=== PATIENT | female | born 1935 | race Caucasian/White ===

== ENCOUNTER 2017-04-12 12:25 | Inpatient (IN) | payer MEDICARE ==
[2017-04-12] VITALS (7 sets, daily range): BP systolic 155–183; BP diastolic 72–104; PULSE 83–100; RESP 16–18; TEMP 98–98.4; O2SAT 95–98
[~2017-04-12] VITALS: Ht 152.4 cm; Wt 52.0 kg
[~2017-04-12 12:25] MED LIST: ASPI325T24 PO; PROT40TA PO
[2017-04-12] MEDS ORDERED: ASPI81TA11 PO (12:54)
--- NOTE | 2017-04-12 13:09 | PD ---
HPI Chief Complaint: Pain: Acute or Chronic Time Seen by Provider: 12:53 Travel History International Travel<30 days: No Contact w/Intl Traveler<30days: No Traveled to known affect area: No History of Present Illness HPI This is an 81 year-old woman presents to the emergency department complaining of feeling weak and dizzy. She states that she had the flu about a month ago and has been weak ever since. She had cough cold symptoms associated with some nausea. She had some diarrhea. Since then the symptoms are resolved but she continues to feel weak, lightheaded at times, this is not really getting any better. Review of systems is positive for some occasional swelling to her fully that of resolved. She also states that she is not sleeping well. No chest pain. No shortness of breath. She urinates a little bit more frequently than normal, but no other obvious UTI symptoms. No other complaints. History Past Medical History Narrative Medical Hypertension Mitral valve prolapse Tetanus Vaccination: < 5 Years Influenza Vaccination: Yes Menopausal: Yes Social History Alcohol Use: No Tobacco Use: No Allergies-Medications (Allergen,Severity, Reaction): Coded Allergies: Sulfa (Verified Allergy, Intermediate, hives, 04/12/17) Reported Meds & Prescriptions Reported Meds & Active Scripts Active Reported Aspirin EC (Aspirin) 81 Mg Tabdr 81 Mg PO DAILY Review of Systems Except as stated in HPI: all other systems reviewed are Neg Physical Exam Narrative GENERAL: [-Elderly 81 year-old woman, no acute distress. SKIN: Focused skin assessment warm/dry. HEAD: Atraumatic. Normocephalic. EYES: Pupils equal and round. No scleral icterus. No injection or drainage. ENT: No nasal bleeding or discharge. Mucous membranes pink and moist. NECK: Trachea midline. No JVD. CARDIOVASCULAR: Regular rate and rhythm. No murmur appreciated. RESPIRATORY: No accessory muscle use. Clear to auscultation. Breath sounds equal bilaterally. GASTROINTESTINAL: Abdomen soft, non-tender, nondistended. Hepatic and splenic margins not palpable. MUSCULOSKELETAL: Kyphotic back, no other deformities. No clubbing. No cyanosis. No edema. NEUROLOGICAL: Awake and alert. No obvious cranial nerve deficits. Motor grossly within normal limits. Normal speech. Data Data Last Documented VS Vital Signs Date Time Temp Pulse Resp B/P Pulse Ox O2 Delivery O2 Flow Rate FiO2 04/12/17 13:39 87 16 174/90 97 Room Air 04/12/17 12:35 98.0 Orders Complete Blood Count With Diff (04/12/17 13:01) Comprehensive Metabolic Panel (04/12/17 13:01) Urinalysis - C+S If Indicated (04/12/17 13:01) Thyroid Stimulating Hormone (04/12/17 13:01) Troponin I (04/12/17 13:01) Iv Access Insert/Monitor (04/12/17 13:01) B-Type Natriuretic Peptide (04/12/17 14:09) Chest, Pa & Lat (04/12/17 ) Electrocardiogram (04/12/17 ) Diet Heart Healthy (04/12/17 Dinner) Admit Order (Ed Use Only) (04/12/17 ) Consult Cardiology (04/12/17 ) Labs Laboratory Tests Test 04/12/17 13:15 White Blood Count 7.6 TH/MM3 Red Blood Count 4.47 MIL/MM3 Hemoglobin 13.8 GM/DL Hematocrit 39.6 % Mean Corpuscular Volume 88.5 FL Mean Corpuscular Hemoglobin 30.8 PG Mean Corpuscular Hemoglobin 34.8 % Concent Red Cell Distribution Width 12.8 % Platelet Count 175 TH/MM3 Mean Platelet Volume 7.8 FL Neutrophils (%) (Auto) 73.4 % Lymphocytes (%) (Auto) 17.4 % Monocytes (%) (Auto) 8.2 % Eosinophils (%) (Auto) 0.4 % Basophils (%) (Auto) 0.6 % Neutrophils # (Auto) 5.7 TH/MM3 Lymphocytes # (Auto) 1.3 TH/MM3 Monocytes # (Auto) 0.6 TH/MM3 Eosinophils # (Auto) 0.0 TH/MM3 Basophils # (Auto) 0.0 TH/MM3 CBC Comment DIFF FINAL Differential Comment Urine Collection Type CLEAN CATCH Urine Color STRAW Urine Turbidity CLEAR Urine pH 6.5 Urine Specific [place] 1.009 Urine Protein NEG mg/dL Urine Glucose (UA) NEG mg/dL Urine Ketones NEG mg/dL Urine Occult Blood NEG Urine Nitrite NEG Urine Bilirubin NEG Urine Leukocyte Esterase NEG Urine Squamous Epithelial 0-2 /hpf Cells Microscopic Urinalysis Comment CULT NOT INDICATED Sodium Level 136 MEQ/L Potassium Level 3.6 MEQ/L Chloride Level 97 MEQ/L Carbon Dioxide Level 30.8 MEQ/L Anion Gap 8 MEQ/L Blood Urea Nitrogen 12 MG/DL Creatinine 0.60 MG/DL Estimat Glomerular Filtration 96 ML/MIN Rate Random Glucose 99 MG/DL Calcium Level 9.3 MG/DL Total Bilirubin 0.4 MG/DL Aspartate Amino Transf 31 U/L (AST/SGOT) Alanine Aminotransferase 38 U/L (ALT/SGPT) Alkaline Phosphatase 91 U/L Troponin I 0.35 NG/ML B-Type Natriuretic Peptide 145 PG/ML Total Protein 7.4 GM/DL Albumin 3.9 GM/DL Thyroid Stimulating Hormone 2.110 uIU/ML 3rd Gen [facility] Medical Decision Making Medical Screen Exam Complete: Yes Emergency Medical Condition: Yes Interpretation(s) My review of EKG: Normal sinus rhythm at a rate of 88, slightly rightward axis, inferior lateral T wave inversions that could suggest ischemia. Compared to previous EKG from February 14, 2015, inferior T-wave inversions are old, lateral T wave changes are new. My review of chest x-ray: Marked kyphosis, no acute cardio pulmonary disease. LABS: CBC is unremarkable. CMP is unremarkable. Troponin 0.35 BNP, not elevated TSH normal Differential Diagnosis Weakness, infection, electrolyte abnormality, kidney failure, anemia, other Narrative Course Medical decision making INITIAL: Is an 81 year-old woman presents to the emergency department complaining of generalized weakness and occasional dizziness after having URI symptoms about a month ago. She looks overall well. She made to still be recovering. We'll check for anemia renal failure lecture light abnormality or other systemic illness. Recommend outpatient follow-up with her primary doctor. FINAL: 81 year-old woman with weakness dizziness, elevated troponin, suspect CHF or ACS. Spoke with Dr. Reynolds. Would like stat consult with cardiology. Spoke with cardiology, would like patient admitted to the [facility]. Limited patient to the [facility] hospital for weakness and dizziness, possible CHF, rule out [place]. Diagnosis Primary Impression: Weakness Additional Impression: NSTEMI (non-ST elevated myocardial infarction) Danny Gallo MD Apr 12, 2017 13:09
[2017-04-12 13:31] LABS: AUTOMATED NEUTROPHIL # 5.7 TH/MM3 (1.8-7.7); BASOPHIL % 0.6 % (0.0-2.0); EOSINOPHIL % 0.4 % (0.0-4.0); HEMATOCRIT 39.6 % (35.0-46.0); HEMO FLAGS DIFF FINAL; LYMPH % 17.4 % (9.0-44.0); LYMPHOCYTE # 1.3 TH/MM3 (1.0-4.8); MEAN CELL VOLUME 88.5 FL (80.0-100.0); MEAN CORPUSCULAR HEMOGLOBIN 30.8 PG (27.0-34.0); MEAN CORPUSCULAR HGB CONC 34.8 % (32.0-36.0); MONO % 8.2 % (0.0-8.0); NEUT % 73.4 % (16.0-70.0); PLATELET COUNT 175 TH/MM3 (150-450); RED BLOOD COUNT 4.47 MIL/MM3 (4.00-5.30); RED CELL DISTRIBUTION WIDTH 12.8 % (11.6-17.2); WHITE BLOOD COUNT 7.6 TH/MM3 (4.0-11.0)
[2017-04-12 13:37] LABS: BLOOD, URINE NEG (NEG); GLUCOSE,URINE NEG (NEG); KETONE, URINE NEG (NEG); NITRITE,URINE NEG (NEG); PH, URINE 6.5 (5.0-8.5)
[2017-04-12 13:40] LABS: CHLORIDE 97 MEQ/L (98-107); POTASSIUM 3.6 MEQ/L (3.5-5.1); SODIUM (NA) 136 MEQ/L (136-145)
[2017-04-12 13:44] LABS: ANION GAP 8 MEQ/L (5-15); BICARBONATE 30.8 MEQ/L (21.0-32.0); BLOOD UREA NITROGEN 12 MG/DL (7-18)
[2017-04-12 13:47] LABS: ALT (GPT) 38 U/L (10-53); AST (GOT) 31 U/L (15-37); GLOMERULAR FILTRATION RATE 96 ML/MIN (>89)
[2017-04-12 13:49] LABS: TOTAL BILIRUBIN ADULT 0.4 MG/DL (0.2-1.0)
[2017-04-12 13:50] LABS: ALKALINE PHOSPHATASE 91 U/L (45-117)
[2017-04-12 13:53] LABS: METHOD OF COLLECTION CLEAN CATCH; URINE COLOR STRAW (YELLW/STRAW)
[2017-04-12 13:54] LABS: COMMENT (UR) CULT NOT INDICATED; CULTURE IF INDICATED CULT NOT INDICATED; SQUAMOUS EPITHELIAL CELL URINE 0-2 /hpf (0-5)
--- NOTE | 2017-04-12 14:58 | RADHPO ---
EXAM DATE/TIME: 04/12/2017 14:36 [facility] COMPARISON: CHEST PA & LAT, February 14, 2015, 18:19. INDICATIONS : Short of breath, weakness. MEDICAL HISTORY : Hypertension. SURGICAL HISTORY : Tonsillectomy. Hysterectomy. Mitral valve replacement. Cardiac cath. Varicose vein sx. Bladder lift. ENCOUNTER: Initial ACUITY: 1 month PAIN SCORE: 0/10 LOCATION: Chest FINDINGS: Sternal wires from previous bypass are noted. Mild interstitial changes are noted. These may well b e chronic. Calcified mitral valve annulus is noted. Bones are osteoporotic. CONCLUSION: Background of interstitial changes in the lung with normal size heart and no pleural effusion. This may be chronic fibrosis. Calcified mitral valve annulus. Washington Fry MD FACR on April 12, 2017 at 14:49 Board Certified Radiologist. This report was verified electronically.
[2017-04-12] MEDS: SODIUM CHLOR 0.45% 1000 ML INJ 1,000 ML IV SCH (16:35)
--- NOTE | 2017-04-12 16:45 | HHI.HP ---
[facility] Non-Staff Admission Diagnosis weakness, rule out [place] Diagnoses: Chief Complaint: Weakness and dyspepsia Travel History International Travel<30 Days: No Contact w/Intl Traveler <30 Da: No Traveled to Known Affected Are: No History of Present Illness Patient's 81-year-old female with a history of mitral valve replacement about 5 years ago in [place]. She came to the emergency room complaining about a week of progressive weakness and associated right leg swelling with numbness in both of her legs. She had some nausea. For the last 2 weeks she's had increasing dyspnea on exertion and nausea. She notes some palpitations. She reports a vague chest pressure and had recently increased her aspirin from 81 mg at 325 mg due to the discomfort. She is the weakness is in her legs and her arms and worse with exertion. Patient also reports increased insomnia. She has also tried taking magnesium occasionally and noted that it improved her energy level somewhat but not completely. For these reasons the patient came to the emergency room. She was seen by the ER physician and noted to have elevated cardiac enzymes. On my review her x-ray there is some basilar congestion pattern. Patient also appears to have dyspnea on exertion when seen and bleeding around the emergency room to the bathroom. He has been no fever or chills. No cough. Patient has elevated blood pressures in the 170s and 90s. For these reasons the patient is admitted to the hospital Review of Systems Constitutional: DENIES: Diaphoretic episodes, Fatigue, Fever, Weight gain, Weight loss, Chills, Dizziness, Change in appetite, Night Sweats Endocrine: DENIES: Abnorml menstrual pattern, Heat/cold intolerance, Polydipsia , Polyuria, Polyphagia Eyes: DENIES: Blurred vision, Diplopia, Eye inflammation, Eye pain, Vision loss , Photosensitivity, Double Vision Ears, nose, mouth, throat: DENIES: Tinnitus, Hearing loss, Vertigo, Nasal discharge, Oral lesions, Throat pain, Hoarseness, Ear Pain, Running Nose, Epistaxis, Sinus Pain, Toothache, Odynophagia Respiratory: DENIES: Apneas, Cough, Snoring, Wheezing, Hemoptysis, Sputum production, Shortness of breath Cardiovascular: COMPLAINS OF: Dyspnea on Exertion, Lower Extremity Edema, DENIES: Chest pain, Palpitations, Syncope, PND, Orthopnea, Claudication Gastrointestinal: COMPLAINS OF: Abdominal pain, Nausea, DENIES: Black stools, Bloody stools, Constipation, Diarrhea, Vomiting, Difficulty Swallowing, Anorexia Genitourinary: DENIES: Abnormal vaginal bleeding, Dysmenorrhea, Dyspareunia, Sexual dysfunction, Urinary frequency, Urinary incontinence, Urgency, Hematuria , Dysuria, Nocturia, Vaginal discharge Musculoskeletal: DENIES: Joint pain, Muscle aches, Stiffness, Joint Swelling, Back pain, Neck pain Integumentary: DENIES: Abnormal pigmentation, Pruritus, Rash, Nail changes, Breast masses, Breast skin changes, Nipple discharge Hematologic/lymphatic: DENIES: Bruising, Lymphadenopathy Immunologic/allergic: DENIES: Eczema, Urticaria Neurologic: DENIES: Abnormal gait, Headache, Localized weakness, Paresthesias, Seizures, Speech Problems, Tremor, Poor Balance Psychiatric: DENIES: Anxiety, Confusion, Mood changes, Depression, Hallucinations, Agitation, Suicidal Ideation, Homicidal Ideation, Delusions Past Family Social History Past Medical History Mitral valve, mechanical Past Surgical History Mechanical mitral valve Partial hysterectomy Vein stripping Reported Medications Reviewed and the medical record, recently increased her aspirin to 325 a day Allergies: Coded Allergies: Sulfa (Verified Allergy, Intermediate, hives, 04/12/17) Active Ordered Medications Reviewed in the medical record Family History Father and mother both of old age in their 80s Social History No tobacco or alcohol, , lives in [facility] Physical Exam Vital Signs Vital Signs Date Time Temp Pulse Resp B/P Pulse Ox O2 Delivery O2 Flow Rate FiO2 04/12/17 15:27 97 18 158/74 98 Room Air 04/12/17 13:39 87 16 174/90 97 Room Air 04/12/17 12:51 94 04/12/17 12:35 98.0 96 18 172/104 98 Physical Exam GENERAL: This is a well-nourished, well-developed patient, in no apparent distress. SKIN: No rashes, ecchymoses or lesions. Cool and dry. HEAD: Atraumatic. Normocephalic. No temporal or scalp tenderness. EYES: Pupils equal round and reactive. Extraocular motions intact. No scleral icterus. No injection or drainage. ENT: Nose without bleeding, purulent drainage or septal hematoma. Throat without erythema, tonsillar hypertrophy or exudate. Uvula midline. Airway patent. NECK: Trachea midline. No JVD or lymphadenopathy. Supple, nontender, no meningeal signs. CARDIOVASCULAR: Regular rate and rhythm without mechanical murmurs, gallops, or rubs. RESPIRATORY: Clear to auscultation. Breath sounds equal bilaterally. No wheezes , rales, or rhonchi. GASTROINTESTINAL: Abdomen soft, non-tender, nondistended. No hepato-splenomegaly , or palpable masses. No guarding. MUSCULOSKELETAL: Extremities without clubbing, cyanosis, or edema. No joint tenderness, effusion, or edema noted. No calf tenderness. Negative Homans sign bilaterally. NEUROLOGICAL: Awake and alert. Cranial nerves II through XII intact. Motor and sensory grossly within normal limits. Five out of 5 muscle strength in all muscle groups. Normal speech. Laboratory Laboratory Tests Test 04/12/17 13:15 White Blood Count 7.6 Red Blood Count 4.47 Hemoglobin 13.8 Hematocrit 39.6 Mean Corpuscular Volume 88.5 Mean Corpuscular Hemoglobin 30.8 Mean Corpuscular Hemoglobin 34.8 Concent Red Cell Distribution Width 12.8 Platelet Count 175 Mean Platelet Volume 7.8 Neutrophils (%) (Auto) 73.4 Lymphocytes (%) (Auto) 17.4 Monocytes (%) (Auto) 8.2 Eosinophils (%) (Auto) 0.4 Basophils (%) (Auto) 0.6 Neutrophils # (Auto) 5.7 Lymphocytes # (Auto) 1.3 Monocytes # (Auto) 0.6 Eosinophils # (Auto) 0.0 Basophils # (Auto) 0.0 CBC Comment DIFF FINAL Differential Comment Urine Collection Type CLEAN CATCH Urine Color STRAW Urine Turbidity CLEAR Urine pH 6.5 Urine Specific [place] 1.009 Urine Protein NEG Urine Glucose (UA) NEG Urine Ketones NEG Urine Occult Blood NEG Urine Nitrite NEG Urine Bilirubin NEG Urine Leukocyte Esterase NEG Urine Squamous Epithelial 0-2 Cells Microscopic Urinalysis Comment CULT NOT INDICATED Sodium Level 136 Potassium Level 3.6 Chloride Level 97 Carbon Dioxide Level 30.8 Anion Gap 8 Blood Urea Nitrogen 12 Creatinine 0.60 Estimat Glomerular Filtration 96 Rate Random Glucose 99 Calcium Level 9.3 Total Bilirubin 0.4 Aspartate Amino Transf 31 (AST/SGOT) Alanine Aminotransferase 38 (ALT/SGPT) Alkaline Phosphatase 91 Troponin I 0.35 B-Type Natriuretic Peptide 145 Total Protein 7.4 Albumin 3.9 Thyroid Stimulating Hormone 2.110 3rd Gen Result Diagram: 04/12/17 1315 04/12/17 1315 Imaging Last Impressions Chest X-Ray 04/12/17 0000 Signed Impressions: Service Date/Time: Wednesday, April 12, 2017 14:36 - CONCLUSION: Background of interstitial changes in the lung with normal size heart and no pleural effusion. This may be chronic fibrosis. Calcified mitral valve annulus. Washington Fry MD FACR Assessment and Plan Problem List: (1) Chest pain, atypical ICD Code: R07.89 Status: Acute Plan: Patient with increased work of breathing and shortness of breath with associated right leg discomfort and dyspepsia. Etiology unclear however may be anginal equivalent versus embolic phenomena versus acute coronary syndrome/non- STEMI. Continue with cardiac enzymes, follow d-dimer, right leg ultrasound Add proton pump inhibitor Cardiac evaluation, continue telemetry, morphine, oxygen, nitroglycerin, aspirin , beta clyde and Lovenox Follow-up echocardiogram inpatient with possible mechanical mitral valve not on anticoagulation On my review of electrocardiogram patient appears to have abnormalities which are worrisome for ischemic in the lateral leads Cardiology notified and the patient be transferred to the cardiac center in [facility] (2) Weakness ICD Code: R53.1 Status: Acute Plan: May be cardiac, patient also reports she had the flu about a month ago when her symptoms actually started. Continue surveillance Patient ambulatory in the emergency room without assistance (3) HTN (hypertension) ICD Code: I10 Status: Acute Plan: We'll add beta clyde, follow clinically Code Status full code Discussed Condition With JAYNE Lo, patient Physician Certification 2 Midnight Certification Type: Admission for Inpatient Services Order for Inpatient Services The services are ordered in accordance with Medicare regulations or non- Medicare payer requirements, as applicable. In the case of services not specified as inpatient-only, they are appropriately provided as inpatient services in accordance with the 2-midnight benchmark. Estimated LOS (days): 3 3 days is the estimated time the patient will need to remain in the hospital, assuming treatment plan goals are met and no additional complications. Post-Hospital Plan: Home Gina Reynolds MD Apr 12, 2017 16:45
[2017-04-12] MEDS: ASPIRIN 325 MG TAB PO SCH (17:17)
[2017-04-12] MEDS: ENOXAPARIN SODIUM 60 MG/0.6 ML SYRINGE SQ SCH (17:20)
[2017-04-12] MEDS: PANTOPRAZOLE SOD 40 MG DELAYED RELEASE TAB PO SCH (17:20)
[2017-04-12] MEDS ORDERED: PILL SPLITTER OTHER PRN (17:30)
[2017-04-12 17:37] LABS: CKMB 8.1 NG/ML (0.5-3.6)
--- NOTE | 2017-04-12 18:45 | RADHPO ---
EXAM DATE/TIME: 04/12/2017 18:02 [facility] COMPARISON: No previous studies available for comparison. INDICATIONS : Right leg swelling and shortness of breath. MEDICAL HISTORY : Hypertension. Arthritis. SURGICAL HISTORY : Tonsillectomy. Hysterectomy. Vericose vein removal right leg. Mitral valve replacement. Cardiac cat heterization. Bladder lift. ENCOUNTER: Initial ACUITY: 2 weeks PAIN SCORE: 0/10 LOCATION: Right leg. TECHNIQUE: Venous ultrasound of the leg was performed from the inguinal ligament to the proximal calf. Real-rom e, color Doppler and spectral tracing, compression and augmentation techniques were used. FINDINGS: There is normal compressibility of the deep venous system from the inguinal region to the proximal ca lf. No echogenic clot is seen in the lumen of the common femoral, femoral, popliteal, and posterior tibial veins. There is a normal response of the venous system to proximal and distal augmentation an d respiration. CONCLUSION: No DVT is identified in the right lower extremity. Jorge Luis العراقي MD on April 12, 2017 at 18:43 Board Certified Radiologist. This report was verified electronically.
[2017-04-12] MEDS: SODIUM CHLORIDE 0.9% FLUSH 10 ML FLUSH IV FLUSH SCH (20:43)
[2017-04-12] MEDS: METOPROLOL TARTRATE 25 MG TAB PO SCH (20:43)
[2017-04-13] VITALS (9 sets, daily range): BP systolic 150–188; BP diastolic 69–90; PULSE 79–95; RESP 16–20; TEMP 96.1–98.3; O2SAT 95–98
[2017-04-13 02:44] LABS: CKMB 6.1 NG/ML (0.5-3.6)
[2017-04-13] MEDS: SODIUM CHLOR 0.45% 1000 ML INJ 1,000 ML IV SCH ×2 (05:05→17:28)
[2017-04-13] MEDS: ENOXAPARIN SODIUM 60 MG/0.6 ML SYRINGE SQ SCH ×2 (05:06→17:22)
[2017-04-13] MEDS: METOPROLOL TARTRATE 25 MG TAB PO SCH ×2 (07:35→20:31)
[2017-04-13] MEDS: ASPIRIN 325 MG TAB PO SCH (07:35)
[2017-04-13] MEDS: PANTOPRAZOLE SOD 40 MG DELAYED RELEASE TAB PO SCH (07:35)
[2017-04-13] MEDS: SODIUM CHLORIDE 0.9% FLUSH 10 ML FLUSH IV FLUSH SCH ×2 (07:40→20:31)
[2017-04-13 09:00] LABS: CKMB 6.3 NG/ML (0.5-3.6)
--- NOTE | 2017-04-13 11:25 | HHI.PR ---
Subjective Remarks Follow-up for chest pressure and lower extremity swelling Patient denies any chest pressure at the moment. She says she feels a lot better. Lower extremity edema has improved. Denies any shortness of breathing, palpitation, lightheadedness or dizziness. She stated that she never had shortness of breathing. Objective Vitals Vital Signs Date Time Temp Pulse Resp B/P Pulse Ox O2 Delivery O2 Flow Rate FiO2 04/13/17 09:39 95 21 04/13/17 08:00 Room Air 04/13/17 08:00 96.1 95 20 188/90 97 04/13/17 04:00 98.3 82 16 150/80 95 04/13/17 00:00 98.1 80 16 154/73 96 04/12/17 21:00 Room Air 04/12/17 20:30 98.4 100 16 168/72 97 04/12/17 19:00 97 21 04/12/17 19:00 83 17 155/73 95 Room Air 04/12/17 18:21 98.1 89 18 183/92 98 Room Air 04/12/17 16:56 97 21 04/12/17 15:27 97 18 158/74 98 Room Air 04/12/17 13:39 87 16 174/90 97 Room Air 04/12/17 12:51 94 04/12/17 12:35 98.0 96 18 172/104 98 I/O 04/12/17 04/12/17 04/12/17 04/13/17 04/13/17 04/13/17 07:00 15:00 23:00 07:00 15:00 23:00 Intake Total 240 ml 712 ml Balance 240 ml 712 ml Intake Oral 240 ml 360 ml IV Total 352 ml # Voids 1 2 # Bowel Movements 0 Result Diagram: 04/12/17 1315 04/12/17 1315 Objective Remarks GENERAL: in NAD CARDIOVASCULAR: Regular rate and rhythm without murmurs, gallops, or rubs. RESPIRATORY: Breath sounds equal bilaterally. No accessory muscle use. GASTROINTESTINAL: Abdomen soft, non-tender, nondistended. MUSCULOSKELETAL: No cyanosis, or edema. BACK: Nontender without obvious deformity. No CVA tenderness. Medications and IVs Current Medications Sodium Chloride (1/2 NS 1000 ml Inj) 1,000 ml @ 75 mls/hr [id number] IV Last administered on 04/12/17 16:35; Start 04/12/17 at 16:04 Sodium Chloride (NS Flush) 2 ml BID IV FLUSH Last administered on 04/12/17 20: 43; Start 04/12/17 at 21:00 Nitroglycerin (Nitroglycerin 2% Oint) 1 inch Q6HR TOP ; Start 04/13/17 at 18:00 Aspirin (Aspirin) 325 mg DAILY PO Last administered on 04/13/17 07:35; Start 04/12/17 at 17:30 Metoprolol Tartrate (Lopressor) 12.5 mg Q12HR PO Last administered on 07:35; Start 04/12/17 at 21:00; Stop 04/13/17 at 10:33; Status DC Enoxaparin Sodium (Lovenox Inj) 50 mg Q12H SQ Last administered on 04/13/17 05 :06; Start 04/12/17 at 18:00 Pantoprazole Sodium (Protonix) 40 mg DAILY PO Last administered on 04/13/17 07 :35; Start 04/12/17 at 18:00 Miscellaneous (Pill Splitter) 1 ea UNSCH PRN OTHER SEE LABEL COMMENTS; Start at 17:30 Metoprolol Tartrate (Lopressor) 25 mg Q12HR PO ; Start 04/13/17 at 21:00 Lisinopril (Prinivil) 10 mg DAILY PO ; Start 04/13/17 at 11:00 A/P Problem List: (1) Chest pain, atypical ICD Code: R07.89 Status: Acute (2) Weakness ICD Code: R53.1 Status: Acute (3) HTN (hypertension) ICD Code: I10 Status: Acute Assessment and Plan 81-year-old female who presented with chest pressure and lower extremity edema NSTEMI -Troponins are elevated at 0.[address] changes on EKG. -At the moment patient is chest pain-free. -She is on metoprolol, aspirin, Lovenox therapeutic dose, and nitroglycerin as needed. Lipid panel was not ordered. Will order lipid panel. -Electric Lift Truck Driver consulted. Pending recommendation. Bilateral lower extremity edema -Improved. May be secondary to NSTEMI. Patient does have severe varicose veins. -Lower extremity Doppler negative. Echo ordered. History of mitral valve replacement -Patient being seen in [place] for this. Hypertension, uncontrolled -Metoprolol was increased to 25 mg by mouth twice a day and lisinopril added. -Continue to monitor. DVT prophylaxis -Patient is on Lovenox. Discharge Planning Pending anvil worker consultation. Chana García MD Apr 13, 2017 11:24
[2017-04-13] MEDS: LISINOPRIL 10 MG TAB PO SCH (11:44)
--- NOTE | 2017-04-13 16:16 | ECHRPT ---
Indication: Shortness of breath CONCLUSIONS The left ventricular systolic function is low normal with an estimated ejection fraction in the rang e of 50- 55%. Mild concentric left ventricular hypertrophy. The right ventricular systoilc function is normal. The right ventricular size is normal. Normally functioning mitral valve bioprosthesis. Aortic valve sclerosis is present. There is mild tricuspid valve regurgitation. The estimated pulmonary arterial pressure is 37 mmHg. The pulmonary valve is not well visualized. BP: 188 / 90 HR: 76 Rhythm: Sinus MEASUREMENTS (Male / Female) Normal Values Technical Quality:Fair 2D ECHO LV Diastolic Diameter PLAX 3.0 cm 4.2 - 5.9 / 3.9 - 5.3 cm LV Systolic Diameter PLAX 2.5 cm IVS Diastolic Thickness 0.9 cm 0.6 - 1.0 / 0.6 - 0.9 cm LVPW Diastolic Thickness 1.0 cm 0.6 - 1.0 / 0.6 - 0.9 cm LV Relative Wall Thickness 0.6 LVOT Diameter 2.0 cm LA Volume Index 31.3 cm/m 16 - 28 cm/m M-MODE Aortic Root Diameter MM 3.1 cm LA Systolic Diameter MM 3.8 cm LA Ao Ratio MM 1.2 AV Cusp Separation MM 1.3 cm DOPPLER AV Peak Velocity 200.0 cm/s AV Peak Gradient 16.0 mmHg LVOT Peak Velocity 93.3 cm/s LVOT Peak Gradient 3.5 mmHg AV Area Cont Eq pk 1.5 cm MV Peak Velocity 142.0 cm/s MV Peak Gradient 8.1 mmHg MV Mean Velocity 97.4 cm/s MV Mean Gradient 4.0 mmHg Mitral E Point Velocity 148.0 cm/s Mitral A Point Velocity 156.0 cm/s Mitral E to A Ratio 0.9 LV E' Septal Velocity 4.5 cm/s Mitral E to LV E' Septal Ratio 33.0 TR Peak Velocity 258.0 cm/s TR Peak Gradient 26.6 mmHg PV Peak Velocity 105.0 cm/s PV Peak Gradient 4.4 mmHg FINDINGS LEFT VENTRICLE The left ventricular systolic function is low normal with an estimated ejection fraction in the rang e of 50- 55%. Mild concentric left ventricular hypertrophy. RIGHT VENTRICLE The right ventricular systoilc function is normal. The right ventricular size is normal. LEFT ATRIUM The left atrial size is normal. RIGHT ATRIUM The right atrial size is normal. MITRAL VALVE Normally functioning mitral valve bioprosthesis. AORTIC VALVE Aortic valve sclerosis is present. TRICUSPID VALVE Structurally normal tricuspid valve. There is mild tricuspid valve regurgitation. The estimated pulmonary arterial pressure is 37 mmHg. PULMONARY VALVE The pulmonary valve is not well visualized. PERICARDIUM No pericardial effusion. Bebo Liu MD (Electronically Signed) Final Date:13 April 2017 16:15
--- NOTE | 2017-04-13 16:58 | EKG ---
Date Performed: 04/12/2017 Time Performed: 14:16:19 PTAGE: 81 years EKG: Sinus rhythm WITH OCCASIONAL SUPRAVENTRICULAR PREMATURE COMPLEXES BORDERLINE RIGHT AXIS DEVIATION ST DEVIATION AN D MODERATE T-WAVE ABNORMALITY, CONSIDER LATERAL ISCHEMIA ST DEVIATION AND MODERATE T-WAVE ABNORMALITY , CONSIDER INFERIOR ISCHEMIA ABNORMAL ECG PREVIOUS TRACING : 02/14/2015 23.58 Since previous tracing, no significant change noted, the pa tient is having more pronounced intralateral changes. ST segment shifts concerning for ischemia. Clin ical correlation suggested. DOCTOR: Yeni Manuel Interpretating Date/Time 04/13/2017 16:55:10
--- NOTE | 2017-04-13 16:59 | EKG ---
Date Performed: 04/12/2017 Time Performed: 18:14:46 PTAGE: 81 years EKG: Sinus rhythm BORDERLINE RIGHT AXIS DEVIATION ST DEVIATION AND MODERATE T-WAVE ABNORMALITY, CONSIDER INFERIOR ISCH EMIA ABNORMAL ECG PREVIOUS TRACING : 04/12/2017 14.16 Since previous tracing, no significant change noted DOCTOR: Yeni Manuel Interpretating Date/Time 04/13/2017 16:55:27
--- NOTE | 2017-04-13 17:01 | EKG ---
Date Performed: 04/12/2017 Time Performed: 22:35:50 PTAGE: 81 years EKG: Sinus rhythm BORDERLINE RIGHT AXIS DEVIATION ST DEVIATION AND MODERATE T-WAVE ABNORMALITY, CONSIDER INFERIOR ISCH EMIA ABNORMAL ECG PREVIOUS TRACING : 04/12/2017 18.14 Since previous tracing, no significant change noted DOCTOR: Yeni Manuel Interpretating Date/Time 04/13/2017 16:59:15
--- NOTE | 2017-04-13 17:02 | EKG ---
Date Performed: 04/13/2017 Time Performed: 05:15:18 PTAGE: 81 years EKG: Sinus rhythm with PAC(s) Rightward axis Inferior/lateral ST-T changes may be due to myocardial ischemia Abnormal ECG PREVIOUS TRACING : 04/12/2017 22.35 Since previous tracing, no significant change noted DOCTOR: Yeni Manuel Interpretating Date/Time 04/13/2017 16:59:36
[2017-04-13] MEDS: NITROGLYCERIN 2% OINT 1 GM PACKET TOP SCH (17:23)
[2017-04-14] VITALS (8 sets, daily range): BP systolic 108–165; BP diastolic 53–76; PULSE 74–97; RESP 16–18; TEMP 97.8–98.6; O2SAT 94–99
[2017-04-14] MEDS: NITROGLYCERIN 2% OINT 1 GM PACKET TOP SCH ×4 (04:54→18:08)
[2017-04-14] MEDS: ENOXAPARIN SODIUM 60 MG/0.6 ML SYRINGE SQ SCH (04:54)
[2017-04-14] MEDS: METOPROLOL TARTRATE 25 MG TAB PO SCH ×2 (08:27→20:46)
[2017-04-14] MEDS: ASPIRIN 325 MG TAB PO SCH (08:27)
[2017-04-14] MEDS: PANTOPRAZOLE SOD 40 MG DELAYED RELEASE TAB PO SCH (08:27)
[2017-04-14] MEDS: LISINOPRIL 10 MG TAB PO SCH (08:27)
[2017-04-14] MEDS: SODIUM CHLOR 0.45% 1000 ML INJ 1,000 ML IV SCH ×2 (08:29→20:47)
[2017-04-14] MEDS: SODIUM CHLORIDE 0.9% FLUSH 10 ML FLUSH IV FLUSH SCH ×2 (08:29→20:46)
--- NOTE | 2017-04-14 11:45 | PD.CONS ---
HPI Consult Requested By Primary Care Physician Non-Staff History of Present Illness 81 y/o F with pmhx of mitral valve replacement about 5 years ago in [place] admitted with progressive weakness and associated right leg swelling with numbness in both of her legs associated with nausea. She reports that for the last 2 weeks she's had increasing dyspnea on exertion and nausea. Denies chest pressure. Blood work up in the ER physician showed elevated cardiac enzymes and EKG SR with non specific ST changes. Cardiology consulted for further management and evaluation. Review of Systems Consitutional: COMPLAINS OF: Fatigue, DENIES: Fever, Chills, Weight gain, Weight loss Eyes: DENIES: Amaurosis Fugax, Change in vision HEENT: DENIES: Lightheadedness, Change in hearing Respiratory: DENIES: See HPI, Cough, Snoring, Shortness of breath, Wheezing, Sputum production Cardiovascular: DENIES: See HPI, Chest pain, Palpitations, Syncope, Tachycardia Gastrointestinal: DENIES: Nausea, Vomiting, Change in bowel habits, Reflux, Bloody stools, Melena Genitourinary: DENIES: Urinary incontinence, Difficulty voiding Integumentary: DENIES: Rash Neurologic: DENIES: Tingling or numbness, Memory problems, Poor Balance, Stroke symptoms Musculoskeletal: DENIES: Joint pain, Muscle pain, Limited range of motion, Back pain Psychiatric: DENIES: Anxiety, Depression, Sleep disturbances Hematologic: DENIES: Bruising tendencies, Bleeding tendencies Endocrine: DENIES: Weight gain, Weight loss, Thyroid disease Past Family Social History Allergies: Coded Allergies: Sulfa (Verified Allergy, Intermediate, hives, 04/12/17) Past Medical History Mitral valve Bioprosthesis Past Surgical History Bioprosthesis mitral valve replacement Partial hysterectomy Vein stripping Reported Medications Reported Meds & Active Scripts Active Reported Aspirin EC (Aspirin) 81 Mg Tabdr 81 Mg PO DAILY Active Ordered Medications Current Medications Medications (Trade) Dose Ordered Sig/Nnamdi Route Start Time Stop Time Status Last Admin (10/26 NS 1000 ml Inj) 1,000 ml @ 75 mls/hr [id number] IV 04/12/17 16:04 04/14/17 08:29 (NS Flush) 2 ml BID IV FLUSH 04/12/17 21:00 04/13/17 20:31 (Nitroglycerin 2% Oint) 1 inch Q6HR TOP 04/13/17 18:00 04/14/17 04:54 (Aspirin) 325 mg DAILY PO 04/12/17 17:30 04/14/17 08:27 (Lovenox Inj) 50 mg Q12H SQ 04/12/17 18:00 04/14/17 04:54 (Protonix) 40 mg DAILY PO 04/12/17 18:00 04/14/17 08:27 (Pill Splitter) 1 ea UNSCH PRN OTHER 04/12/17 17:30 (Lopressor) 25 mg Q12HR PO 04/13/17 21:00 04/14/17 08:27 (Prinivil) 10 mg DAILY PO 04/13/17 11:00 04/14/17 08:27 Social History No alcohol No tobacco use No illicit drug use Physical Exam Vital Signs Vital Signs Date Time Temp Pulse Resp B/P Pulse Ox O2 Delivery O2 Flow Rate FiO2 04/14/17 10:30 97 04/14/17 08:30 Room Air 04/14/17 08:00 97.9 83 18 146/76 97 04/14/17 04:00 98.6 88 18 159/76 95 04/14/17 00:00 98.4 74 18 108/53 98 04/13/17 20:56 98 21 04/13/17 20:20 Room Air 04/13/17 20:00 83 04/13/17 20:00 97.5 85 18 162/79 98 04/13/17 16:00 Room Air 04/13/17 16:00 98.0 79 20 168/69 98 04/13/17 12:00 97.4 81 20 173/78 97 04/13/17 12:00 Room Air Physical Exam GENERAL: Well-nourished, well-developed patient. SKIN: Warm and dry. HEAD: Normocephalic. EYES: No scleral icterus. No injection or drainage. NECK: Supple, trachea midline. No JVD or lymphadenopathy. CARDIOVASCULAR: Regular rate and rhythm 2/6 ALESIA radiating to axilla no gallops, or rubs. RESPIRATORY: Breath sounds equal bilaterally. No accessory muscle use. GASTROINTESTINAL: Abdomen soft, non-tender, nondistended. EXTREMITIES: No cyanosis, or edema. NEUROLOGICAL: Awake, alert, and oriented x 3. Non-focal. Result Diagram: 04/12/17 1315 04/12/17 1315 Imaging Last Impressions Lower Extremity Ultrasound 04/12/17 0000 Signed Impressions: Service Date/Time: Wednesday, April 12, 2017 18:02 - CONCLUSION: No DVT is identified in the right lower extremity. Jorge Luis الرعاقي MD Chest X-Ray 04/12/17 0000 Signed Impressions: Service Date/Time: Wednesday, April 12, 2017 14:36 - CONCLUSION: Background of interstitial changes in the lung with normal size heart and no pleural effusion. This may be chronic fibrosis. Calcified mitral valve annulus. Washington Fry MD FACR CONCLUSIONS The left ventricular systolic function is low normal with an estimated ejection fraction in the range of 50- 55%. Mild concentric left ventricular hypertrophy. The right ventricular systolic function is normal. The right ventricular size is normal. Normally functioning mitral valve bioprosthesis. Aortic valve sclerosis is present. There is mild tricuspid valve regurgitation. The estimated pulmonary arterial pressure is 37 mmHg. The pulmonary valve is not well visualized. Assessment and Plan Problem List: (1) NSTEMI (non-ST elevated myocardial infarction) Assessment and Plan: 81 y/o F with minimally elevated troponin and complaints of generalized weakness and SOB. Afebrile and hemodynamically stable. Cardiac risk factors: Age and HTN. Cardiology record in [place]. Troponin elevation and symptoms concerning for ACS. Reasonable to consider LHC. Risk benefits including but not limited to neurovascular trauma, bleeding, infection, renal failure, stroke, emergent CABG and have been explain to the patient. She understands risks and is willing to proceed. Recommendations: 1. Keep NPO for LHC today (2) Weakness (3) HTN (hypertension) (4) Chest pain, atypical (5) GERD (gastroesophageal reflux disease) Jeet Valentin MD Apr 14, 2017 11:45
[2017-04-14] MEDS ORDERED: IOHEXOL 350 MG/ML 100 ML BTL (for Cath Lab) OTHER ONE (12:45)
[2017-04-14] MEDS ORDERED: MIDAZOLAM HCL 2 MG/2 ML VIAL ONE (12:52)
[2017-04-14] MEDS ORDERED: HEPARIN SODIUM - IV 10,000 UNITS/10 ML VIAL ONE (12:54)
[2017-04-14] MEDS ORDERED: HEPARIN-NS/PF INJ 500 ML ONE (12:54)
[2017-04-14] MEDS ORDERED: VERAPAMIL HCL 5 MG/2 ML VIAL ONE (12:54)
--- NOTE | 2017-04-14 14:11 | CATHPROC ---
GO-SIM HIS Report Study Information Study Number Admission Scheduled Start Study Start [id number] Apr 12 2017 4:05PM 04/14/2017 Apr 14 2017 12:46PM Radiant Service Cardiac Catheterization Admit Source Facility Department Other [facility] Physician and Clinical Staff Initial Jeet Navarrete Nailer Operator Leora Schulz,SWAPNIL Nailer Operator Nunu Laura BSRN Other cathlab, cathlab Recorder Genesis Pina,RT(R) TECH2 Scrub Jomar Kraft,STAFF ACCOUNTANT(BS) X-Ray Chinedu Guerra,RT(R) Equipment Time Insole Rasper Description Size Mfg Part Number Used/Scraped TRANSDUCER, TRUWAVE [id number] 12:59 VILLALTA VENEGAS * Used W/STOCKCOCK *[id number] 13:56 CARDIVA MEDICAL VASCADE, FR5 CLOSURE SYSTEM FR 5 Used *[id number]- INTRODUCER SET, 13:23 [employer]. FR 5 SC-NT-U-[id number] Used MICROPUNCTURE, STIFFENED *[id number] [id number] *[id number] [id number] *[id number] 12:59 [employer] INDUSTRIES PACK, CCL CUSTOM * Used *[id number] 12:59 Cloud.CM SUPPORT, ARTERIAL ADULT 51804 Used [id number] 12:59 [employer] MEDICAL WIRE, 3MMJ .035 180CM 180CM Used *[id number] 12:59 NAMIC MANIFOLD, 4 PORT * Used *[id number] 12:59 [employer]ED OMNIPAQUE, 350 MG, 150ML 150ML [id number] Used [id number] 12:59 [place] [employer] BLANKET,WARM AIR CCL * Used *[id number] 13:23 TERUMO MEDICAL SHEATH, FR5 TERUMO (10CM) FR 5 [id number] Used SHEATH, FR6 TRANSRADIAL 12:59 TERUMO MEDICAL FR 6 [id number] Used SLENDER 10CM Equipment Model, Serial, Lot Number and Expiration Data Description Model Number Serial Number Lot Number Expiration Charlie e INTRODUCER SET, [id number] 02-25-2020 MICROPUNCTURE, STIFFENED History: Current Medications Medication Dosage/Unit Route Frequency Last Date/Time Taken ASA LOPRESSOR LOVENOX History: Allergies Allergy Reaction Sulfa hives History: Risk Factors Family History of Hypertension Dyslipidemia Previous [place] Previous Heart Failure Premature CAD Yes No No No No Prior Valve Prior PCI Prior CABG Surgery Yes No No Cerebrovascular Peripheral Artery Chronic Lung On Dialysis Diabetes Disease Disease Disease No No Yes No No History: Symptoms/Diagnosis Selection Items SOB History: Stress Tests Stress or Imaging Studies Performed No History: Other Current Smoker No Labs Hgb (g/dl) Hct (%) RBC (MIL/MM3) WBC (l/cumm) Platelets (thousands) 12.00-18.00 37.00-55.00 4.80-6.20 4.80-10.80 140.00-450.00 13.8 39.6 4.4 7.6 175 Glucose (mg/dl) BUN (mg/dl) Creatinine (mg/dl) BUN:Creatinine (1:x) 60.00-110.00 8.00-20.00 0.10-9.00 10.00-20.00 99 12 0.6 20 Na (meq/l) K (meq/l) Cl (meq/l) CO2 (mmol/L) Ca (mg/dl) 138.00-146.00 3.80-5.10 101.00-111.00 23.00-30.00 9.00-10.50 136 3.6 97 30.8 9.3 Troponin I (ng/ml) CPK-MB (ng/ML) 0.40-2.30 0.00-7.00 0.37 6.3 Medication Medication Total Dose (Bolus/Oral) Medication Total Dosage/Unit 1% XYLOCAINE 20 mL Medications (Bolus/Oral) Medication Time Given Dosage/Unit Administered By Reason 1% XYLOCAINE 04/14/2017 1:19:38 PM 20 mL Jeet Valentin 20 mL 1% XYLOCAINE given in lab by Jeet Valentin in Right Groin via Subcutaneous. Ordered by Jeet Bruce. Medication (Drip) Medication Time Given Dosage/Unit Concentration/Unit Diluent (ml) Solution IV Solutions 04/14/2017 12:57:13 PM 0 mL (IV) 500 NaCl .9 IV Solutions given in lab by Leora Schulz, RN in Left Forearm via Peripheral IV. Pump/Drip Flow = 2 0 ml/hr using NaCl .9. Ordered by Jeet Valentin. Reason: As per physicians verbal order. Initial Case Assessment Cardiovascular HR NIBP Chest Pain 71 160/82 0 Edema Present Skin color Skin None Normal Warm Dry Circulatory - Right Pulses Dorsalis Pedis Femoral Radial 3 3 1 Scale (0,1,2,3,4,d) Scale (0,1,2,3,4,d) Neurological State Oriented to time-place- Alert Moves all extremities person Respiration - General Respiration Rate SpO2 (%) O2 (lpm) (B/min) 18 97 0 Final Case Assessment Cardiovascular HR Rhythm NIBP Chest Pain 81 sr 147/73 0 Edema Present Skin color Skin None Normal Warm Dry Circulatory - Right Pulses Dorsalis Pedis Femoral Brachial 3 1 3 Scale (0,1,2,3,4,d) Scale (0,1,2,3,4,d) Neurological State Oriented to time-place- Alert Moves all extremities person Respiration - General Respiration Rate SpO2 (%) (B/min) 12 96 Chronological Log Time Study Chronological Log 12:45:19 Patient arrived via Bed. 12:46:24 Patient Name, D.O.B, / Armband Verified By R.N. 12:46:24 Consent signed by the physician and the patient and verified by the [facility] staff. 12:46:26 Pre-op and post- op instructions given; patient acknowledges understanding of instructions. 12:55:53 A # 18 IV was noted in the Forearm (left). Grade = 0 IV Solutions given in lab by Leora Schulz, RN in Left Forearm via Peripheral IV. Pump/Drip Fl ow = 20 ml/hr using 12:57:13 NaCl .9. Ordered by Jeet Valentin. Reason: As per physicians verbal order. Vitals capture started with the following parameters, Patient=Adult, Interval=15 min, Initial P thzpwvt=732 mmHg, 12:58:26 Deflation Rate=5 mmHg 12:58:31 History and physical on the chart or being dictated. 12:59:00 HR=92 bpm, CCRZ=202/82 mmhg, SpO2=96.0 %, Resp=20 B/min, Pain=0, Cesar=10, Mcadams=2 Assessment: Initial Case, HR=71 BPM, DJFL=999/82 mmhg, Chest Pain=0, Edema=None, Color=Normal, Skin = Warm, Dry 12:59:22 Right Pulses: Low Ped=3, Femoral=3, Radial=1 Neurological: State=Alert, Ox3, BEJARANO Respiration: Resp=18 B/min, SpO2=97 %, O2=0 lpm 13:00:26 Skin Breakdown-none per patient 13:00:44 Patient Warmer Placed on the Table. 13:00:46 Rafael Prominences Protected 13:01:03 HR=79 bpm, KBFU=161/81 mmhg, SpO2=96.0 %, Resp=20 B/min, Pain=0, Cesar=10, Mcadams=2 13:01:20 Patient has been NPO for Less than 6Hrs. 13:03:04 HR=81 bpm, TINM=970/80 mmhg, SpO2=95.0 %, Resp=19 B/min, Pain=0, Cesar=10, Mcadams=2 13:05:03 HR=80 bpm, YKGJ=119/80 mmhg, SpO2=95.0 %, Resp=19 B/min, Pain=0, Cesar=10, Mcadams=2 13:07:02 HR=81 bpm, QBHT=025/83 mmhg, SpO2=94.0 %, Resp=18 B/min, Pain=0, Cesar=10, Mcadams=2 13:08:37 Right Radial and groin(s) prepped with 2% chlorhexidine, and with a 3 min. waiting time. 13:09:00 HR=79 bpm, LITL=276/85 mmhg, SpO2=97.0 %, Resp=18 B/min, Pain=0, Cesar=10, Mcadams=2 13:11:01 PO=457 bpm, QGRH=901/85 mmhg, SpO2=99.0 %, Resp=14 B/min, Pain=0, Cesar=10, Mcadams=2 13:13:02 HR=87 bpm, DRBC=658/83 mmhg, SpO2=98.0 %, Resp=13 B/min, Pain=0, Cesar=10, Mcadams=2 13:13:31 Vitals capture stopped. Vitals capture started with the following parameters, Patient=Adult, Interval=5 min, Initial Pr cvqozi=370 mmHg, 13:13:50 Deflation Rate=5 mmHg 13:14:06 Pressure channel 1 zeroed. 13:15:07 HR=99 bpm, DLAR=217/82 mmhg, SpO2=97.0 %, Resp=15 B/min, Pain=0, Cesar=10, Mcadams=2 Time Out. Correct patient, correct procedure,correct physician, ,power injector not loaded with contrast with surgical 13:18:19 team present. Time Out Concurred by MD, individual staff and [employer] in procedure 13:19:23 HR=79 bpm, GTVO=953/83 mmhg, SpO2=99.0 %, Resp=18 B/min, Pain=0, Cesar=10, Mcadams=2 13:19:33 Case Start 20 mL 1% XYLOCAINE given in lab by Jeet Valentin in Right Groin via Subcutaneous. Ordered b y Barbie, 13:19:38 Jeet. 13:24:26 HR=76 bpm, QHBS=648/81 mmhg, SpO2=98.0 %, Resp=18 B/min, Pain=0, Cesar=10, Mcadams=2 13:25:21 Access site was Right Femoral Artery. A SHEATH, FR5 TERUMO (10CM) FR 5 was advanced into the Fem Art (right) using the Percutaneous t echnique. 13:25:29 obtained with a micropuncture kit 13:27:20 Reference ECG taken A JR 4.0 INFINITI CATHETER FR 5 was advanced over a wire. OMNIPAQUE, 350 MG, 150ML 150ML was us ed for 13:27:29 injections. 13:28:47 Pressure channel 1 zeroed. Recorded Pressure: Ao, HR=80, Condition=Condition 1 13:29:24 (Aorta) Ao 169/78/116 13:29:27 HR=81 bpm, XNTB=033/83 mmhg, SpO2=98.0 %, Resp=19 B/min, Pain=0, Cesar=10, Mcadams=2 13:32:30 Catheter was removed A JL 3.5 INFINITI CATHETER FR 5 was advanced over a wire. OMNIPAQUE, 350 MG, 150ML 150ML was u sed for 13:32:31 injections. 13:34:28 HR=83 bpm, QTGX=333/73 mmhg, SpO2=98.0 %, Resp=19 B/min, Pain=0, Cesar=10, Mcadams=2 13:34:41 Catheter was removed A JR 4.0 INFINITI CATHETER FR 5 was advanced over a wire. OMNIPAQUE, 350 MG, 150ML 150ML was u sed for 13:34:44 injections. Recorded Pressure: LV, HR=82, Condition=Condition 1 13:35:41 (Left Ventricle) LV 167/0/13 13:35:53 Catheter(s) removed without difficulty 13:36:13 VASCADE, FR5 CLOSURE SYSTEM FR 5 placement in the Fem Art (right) 13:38:19 Contrast Scanned 13:38:35 Case End 13:39:27 HR=81 bpm, DOFJ=401/73 mmhg, SpO2=99.0 %, Resp=12 B/min, Pain=0, Cesar=10, Mcadams=2 Assessment: Final Case, HR=81 BPM, Rhythm=sr, QXMG=024/73 mmhg, Chest Pain=0, Edema=None, [place] r=Normal, Skin = Warm, Dry 13:40:00 Right Pulses: Low Ped=3, Femoral=1, Brachial=3 Neurological: State=Alert, Ox3, BEJARANO Respiration: Resp=12 B/min, SpO2=96 % 13:40:10 Sterile dressing applied to site 13:40:10 No case complications noted. 13:41:30 Vitals capture stopped. 13:45:28 [facility] 13:46:20 Bedside Report will be given. 13:47:12 Implantable Device card placed in patient's chart. End Study - Contrast Media Used In Study Contrast Total Opened (mL) Total Used (mL) Total Wasted (mL) Omnipaque 70 70 0 End Study - Maximum Contrast Load Max Contrast Load (mL) 442.4 End Study - Radiation Exposure Fluoro Time (minutes) 3.9 End Study - Patient Disposition Complications Transferred To No Telemetry Bed
--- NOTE | 2017-04-14 14:14 | MA ---
cc: MYCHAL VELÁZQUEZ DATE: 04/14/2017 1934 PROCEDURE PERFORMED 1. Left heart catheterization. 2. Selective right and left coronary angiography. 3. Left ventriculography. 4. Selective right common femoral artery angiography. INDICATION [id number] AL./ Elevated Troponin DESCRIPTION OF PROCEDURE Consent is signed. The patient was brought into the cardiac prosthetic lab technician in fasting state. The right groin was prepped and draped in sterile fashion. Using 1% lidocaine for local anesthesia and micropuncture kit a 5-Amharic sheath was inserted into the right common femoral artery. Right common femoral artery angiography was performed to confirm position of the sheath, then selective right and left coronary angiography was performed with a JR-4 and JL-3.5 diagnostic catheters. Angiography was taken in multiple views. Then the JR-4 diagnostic catheter was put into the left ventricle over a wire. This was followed by pressure recordings, left ventriculogram and pullback. The patient tolerated the procedure well without complications. Estimated blood loss less than 30 ccs. Total contrast used 70 ccs. All catheters were exchanged over a wire. The right groin access site was closed with a Vascade closure device. RESULTS Left ventricle: The left ventricular pressure was 166/0 with an LVEDP of 13, aortic pressure was 157/60 with a mean of 95. The left ventriculogram revealed symmetric bogdan ventricle with an estimated ejection fraction of 60%. ANGIOGRAPHY 1. Right coronary artery is a dominant vessel giving off the PDA, it has minimal luminal irregularities throughout both but mostly patent. There is also mild calcification throughout, however, the vessel for the most part is patent with MARIO III flow and no significant obstructive coronary artery disease. The PDA is also patent. 2. Left main is patent with MARIO III flow and nonobstructive coronary artery disease. 3. The LAD is a transapical vessel, it has minimal luminal Irregularities. It has a mid 20% lesion, is giving off a small diagonal which also is patent with MARIO III flow. The left circumflex artery is patent with nonobstructive CAD, has two OM vessels, the first OM is a prominent vessel, the second however is small. The AV groove segment of the circ is patent, small with MARIO III flow. 4. There is a ramus that is patent with nonobstructive CAD and tortuous. CONCLUSION 1. Nonobstructive coronary artery disease. 2. Elevated LVEDP. 3. Preserved LV systolic function. RECOMMENDATIONS Continue aggressive medical management for primary prevention of coronary artery disease as well as therapeutic lifestyle changes. The patient is going to go to the DOCU for post cath care and then she will be transferred back to the floor. She Follow with her pin puller upon discharge. MD FREDO Fong/JAIR /1:47 PM /1:55 PM MTDGoran
--- NOTE | 2017-04-14 16:28 | HHI.PR ---
Subjective Remarks Pt is s/p cath. wants to go to her room soon (she is in PACU). Denies any CP/SOB /N/V at this time. states she doesn't usually take BP meds Objective Vitals Vital Signs Date Time Temp Pulse Resp B/P Pulse Ox O2 Delivery O2 Flow Rate FiO2 04/14/17 13:58 99 Room Air 04/14/17 10:30 97 04/14/17 08:30 Room Air 04/14/17 08:00 97.9 83 18 146/76 97 04/14/17 04:00 98.6 88 18 159/76 95 04/14/17 00:00 98.4 74 18 108/53 98 04/13/17 20:56 98 21 04/13/17 20:20 Room Air 04/13/17 20:00 83 04/13/17 20:00 97.5 85 18 162/79 98 04/13/17 16:00 Room Air 04/13/17 16:00 98.0 79 20 168/69 98 I/O 04/13/17 04/13/17 04/13/17 04/14/17 04/14/17 04/14/17 07:00 15:00 23:00 07:00 15:00 23:00 Intake Total 712 ml 361 ml 782 ml 565 ml Balance 712 ml 361 ml 782 ml 565 ml Intake Oral 360 ml 360 ml 120 ml IV Total 352 ml 361 ml 422 ml 445 ml # Voids 2 3 2 2 # Bowel Movements 0 0 0 Result Diagram: 04/12/17 1315 04/12/17 1315 Imaging Last Impressions Lower Extremity Ultrasound 04/12/17 0000 Signed Impressions: Service Date/Time: Wednesday, April 12, 2017 18:02 - CONCLUSION: No DVT is identified in the right lower extremity. Jorge Luis العراقي MD Chest X-Ray 04/12/17 0000 Signed Impressions: Service Date/Time: Wednesday, April 12, 2017 14:36 - CONCLUSION: Background of interstitial changes in the lung with normal size heart and no pleural effusion. This may be chronic fibrosis. Calcified mitral valve annulus. Washington Fry MD FACR Objective Remarks GENERAL: in NAD CARDIOVASCULAR: Regular rate and rhythm without murmurs RESPIRATORY: Breath sounds equal bilaterally. No accessory muscle use. GASTROINTESTINAL: Abdomen soft, non-tender, nondistended. MUSCULOSKELETAL: dressing over right groin, d/c/i, no hematoma A/P Problem List: (1) Chest pain, atypical ICD Code: R07.89 Status: Acute (2) Weakness ICD Code: R53.1 Status: Acute (3) HTN (hypertension) ICD Code: I10 Status: Acute Assessment and Plan NSTEMI -Troponins are elevated, she is s/p cardiac cath, per report nonobstructive CAD , elevated LVEDP and preserved LV systolic function. Recommendations are for aggressive medical management. -At the moment patient is chest pain-free. -on metoprolol, lisinopril aspirin, d/c Lovenox therapeutic dose, on nitroglycerin as needed. Lipid panel: TG 82, LDL 120, HDL 56. will start her on pravastatin 20mg po daily. -Marketing Liaison following. Bilateral lower extremity edema -Improved. patient does have severe varicose veins. -Lower extremity Doppler negative. Echo showed EF 50-55%. History of mitral valve replacement -Patient being seen in [place] for this. Hypertension, uncontrolled -Metoprolol was increased to 25 mg by mouth twice a day and lisinopril -Continue to monitor. DVT prophylaxis -Patient is on Lovenox. Discharge Planning s/p cardiac cath monitor BPs and adjust BP meds awaiting final recs from Deana Andres MD Apr 14, 2017 16:28
[2017-04-15] MEDS: NITROGLYCERIN 2% OINT 1 GM PACKET TOP SCH ×2 (00:57→05:19)
[2017-04-15 05:00] VITALS: BP 155/74; PULSE 80; RESP 16; TEMP 98.3; O2SAT 94
[2017-04-15 08:00] VITALS: BP 147/69; PULSE 86; RESP 18; TEMP 97.8; O2SAT 98
[2017-04-15] MEDS ORDERED: PRAVASTATIN SOD 20 MG TAB PO SCH (09:00)
[2017-04-15] MEDS ORDERED: ENOXAPARIN SODIUM 40 MG/0.4 ML SYRINGE SQ SCH (09:00)
[2017-04-15] MEDS: METOPROLOL TARTRATE 25 MG TAB PO SCH (09:16)
[2017-04-15] MEDS: PANTOPRAZOLE SOD 40 MG DELAYED RELEASE TAB PO SCH (09:16)
[2017-04-15] MEDS: ASPIRIN 325 MG TAB PO SCH (09:16)
[2017-04-15] MEDS: LISINOPRIL 10 MG TAB PO SCH (09:16)
[2017-04-15] MEDS: SODIUM CHLORIDE 0.9% FLUSH 10 ML FLUSH IV FLUSH SCH (09:16)
[2017-04-15 10:14] VITALS: O2SAT 98
[2017-04-15 12:00] VITALS: BP 165/79; PULSE 75; RESP 18; TEMP 97.8; O2SAT 95
[2017-04-15] MEDS ORDERED: LISI10TA3 PO (12:34)
[2017-04-15] MEDS ORDERED: PRAV20TA PO (12:34)
[2017-04-15] MEDS ORDERED: METO25TA3 PO (12:34)
--- NOTE | 2017-04-15 12:39 | HHI.DS ---
Discharge Summary Admission Date Apr 12, 2017 at 16:05 Discharge Date: Apr 15, 2017 Admitting Diagnosis weakness, rule out [place] (1) Chest pain, atypical ICD Code: R07.89 Diagnosis: Principal (2) Weakness ICD Code: R53.1 Diagnosis: Principal (3) HTN (hypertension) ICD Code: I10 Diagnosis: Principal (4) NSTEMI (non-ST elevated myocardial infarction) ICD Code: I21.4 Diagnosis: Principal Procedures cardiac cath Brief History - From Admission Patient's 81-year-old female with a history of mitral valve replacement about 5 years ago in [place]. She came to the emergency room complaining about a week of progressive weakness and associated right leg swelling with numbness in both of her legs. She had some nausea. For the last 2 weeks she's had increasing dyspnea on exertion and nausea. She notes some palpitations. She reports a vague chest pressure and had recently increased her aspirin from 81 mg at 325 mg due to the discomfort. She is the weakness is in her legs and her arms and worse with exertion. Patient also reports increased insomnia. She has also tried taking magnesium occasionally and noted that it improved her energy level somewhat but not completely. For these reasons the patient came to the emergency room. She was seen by the ER physician and noted to have elevated cardiac enzymes. On my review her x-ray there is some basilar congestion pattern. Patient also appears to have dyspnea on exertion when seen and bleeding around the emergency room to the bathroom. He has been no fever or chills. No cough. Patient has elevated blood pressures in the 170s and 90s. For these reasons the patient is admitted to the hospital CBC/BMP: 04/12/17 1315 04/12/17 1315 Significant Findings Laboratory Tests Test 04/12/17 04/12/17 04/13/17 04/13/17 13:15 16:55 01:45 07:37 Neutrophils (%) (Auto) 73.4 % (16.0-70.0) Monocytes (%) (Auto) 8.2 % (0.0-8.0) D-Dimer Quantitative (PE/DVT) 1.13 MG/L FEU (0.00-0.50) Chloride Level 97 MEQ/L (98-107) Troponin I 0.35 NG/ML 0.33 NG/ML 0.36 NG/ML 0.37 NG/ML (0.02-0.05) (0.02-0.05) (0.02-0.05) (0.02-0.05) B-Type Natriuretic Peptide 145 PG/ML (0-100) Total Creatine Kinase 211 U/L 203 U/L 214 U/L (26-192) (26-192) (26-192) Creatine Kinase MB 8.1 NG/ML 6.1 NG/ML 6.3 NG/ML (0.5-3.6) (0.5-3.6) (0.5-3.6) LDL Cholesterol 120 MG/DL (0-99) Imaging Last Impressions Lower Extremity Ultrasound 04/12/17 0000 Signed Impressions: Service Date/Time: Wednesday, April 12, 2017 18:02 - CONCLUSION: No DVT is identified in the right lower extremity. Jorge Luis العراقي MD Chest X-Ray 04/12/17 0000 Signed Impressions: Service Date/Time: Wednesday, April 12, 2017 14:36 - CONCLUSION: Background of interstitial changes in the lung with normal size heart and no pleural effusion. This may be chronic fibrosis. Calcified mitral valve annulus. Washington Fry MD FACR PE at Discharge GENERAL: in NAD CARDIOVASCULAR: Regular rate and rhythm without murmurs RESPIRATORY: Breath sounds equal bilaterally. No accessory muscle use. GASTROINTESTINAL: Abdomen soft, non-tender, nondistended. MUSCULOSKELETAL: dressing over right groin, d/c/i, no hematoma Hospital Course NSTEMI -Troponins are elevated, she is s/p cardiac cath, per report nonobstructive CAD , elevated LVEDP and preserved LV systolic function. Recommendations are for aggressive medical management. Pt to continue home dose ASA, scripts for lisinopril, metoprolol and pravastatin in chart. -on discharge patient was chest pain-free. Lipid panel: TG 82, LDL 120, HDL 56. f/u w cardiology in 1-2 weeks Bilateral lower extremity edema -Improved. patient does have severe varicose veins. -Lower extremity Doppler negative. Echo showed EF 50-55%. History of mitral valve replacement -Patient being seen in [place] for this. Hypertension, uncontrolled -better controlled on Metoprolol and lisinopril. Pt counseled on low salt diet. -Monitor as an outpatient Pt Condition on Discharge: Stable Discharge Disposition: Discharge Home Discharge Time: > 30 minutes Discharge Instructions DIET: Follow Instructions for: Heart Healthy Diet Activities you can perform: Regular-No Restrictions Follow up Referrals: Cardiology - 2 Weeks PCP Follow-up - 1 Week New Medications: Lisinopril (Lisinopril) 10 Mg Tab 10 MG PO DAILY Days 30 TAB Metoprolol Tartrate (Metoprolol Tartrate) 25 Mg Tab 25 MG PO Q12HR Days 30 TAB Pravastatin (Pravachol) 20 Mg Tab 20 MG PO DAILY Days 30 TAB Continued Medications: Aspirin DR (Aspirin EC) 81 Mg Tabdr 81 MG PO DAILY Ref 0 TAB Deana Branch MD Apr 15, 2017 12:39
== END 2017-04-15 13:25 | disposition home or self-care (01) | DRG 282 ==
LOC: PHED 12:25 → PHEDA 15:04 → OBSVTOIN 16:05 → N04A 19:47
PROVIDERS: ADMIT Hospitalist; ATTEND Hospitalist
PROC: B211YZZ Fluoroscopy of Multiple Coronary Arteries using Other Contrast (ICD-10-PCS; 2017-04-14)
PROC: B215YZZ Fluoroscopy of Left Heart using Other Contrast (ICD-10-PCS; 2017-04-14)
PROC: 4A023N7 Measurement of Cardiac Sampling and Pressure, Left Heart, Percutaneous Approach (ICD-10-PCS; principal; 2017-04-14 15:00)
DX: I21.4 Non-ST elevation (NSTEMI) myocardial infarction (principal); I07.1 Rheumatic tricuspid insufficiency; Z95.2 Presence of prosthetic heart valve; I10 Essential (primary) hypertension; R07.89 Other chest pain; I83.90 Asymptomatic varicose veins of unspecified lower extremity; K21.9 Gastro-esophageal reflux disease without esophagitis; I25.10 Atherosclerotic heart disease of native coronary artery without angina pectoris
CPT/HCPCS: 71020; 80053; 80061; 81001; 82550; 82552; 83880; 84443; 84484; 85025; 85379; 93005; 93306; 93458; 93971; 99285; C1760; C1769; C1893; G0269; J1644; J1650; J2250; J3010; Q9967

== ENCOUNTER 2017-09-02 21:34 | Emergency (ER) | payer MEDICARE ==
[~2017-09-02] VITALS: Ht 149.9 cm; Wt 51.0 kg
[~2017-09-02 21:34] MED LIST changes: -ASPI325T24 PO; +ASPI81TA23 PO; +LISI10TA3 PO; +METO25TA3 PO; +PRAV20TA PO; -PROT40TA PO
[2017-09-02 21:41] VITALS: BP 156/72; PULSE 97; RESP 20; TEMP 99; O2SAT 97
--- NOTE | 2017-09-03 01:17 | RADRPT ---
EXAM DATE/TIME: 09/03/2017 00:51 [facility] COMPARISON: No previous studies available for comparison. INDICATIONS : Right proximal humerus pain post fall today MEDICAL HISTORY : None. SURGICAL HISTORY : None. ENCOUNTER: Initial ACUITY: 1 day PAIN SCORE: 10/10 LOCATION: Right proximal humerus FINDINGS: There is a fracture of the right humeral neck with one shaft width anterior displacement of the dista l fracture fragment. There is 2 cm overlap. The glenohumeral joint is intact. The acromioclavicular j oint is intact. CONCLUSION: 1. Right humeral neck fracture Armando Angulo MD on September 03, 2017 at 1:15 Board Certified Radiologist. This report was verified electronically.
--- NOTE | 2017-09-03 01:46 | PD ---
HPI Chief Complaint: Fall Time Seen by Provider: 00:43 Travel History International Travel<30 days: No Contact w/Intl Traveler<30days: No Traveled to known affect area: No History of Present Illness HPI The patient is an 81-year-old female that tripped and fell in her driveway hitting her right supraorbital area. There is no loss of consciousness. The patient does not have a headache. She is not on any anticoagulants other than aspirin 81 mg. She complains of pain in the right humerus which is a 10 over 10 and sharp pain and a laceration on the right supraorbital area. The patient is leaving the [facility] and moving to [place]. She cannot remember her last tetanus shot. PFSH Past Medical History Arthritis: Yes Cancer: No Cardiac Catheterization: Yes Diminished Hearing: No Hypertension: Yes Immunizations Current: Yes Tetanus Vaccination: > 5 Years Influenza Vaccination: Yes ?: Not Menopausal: Yes Past Surgical History Cardiac Surgery: Yes (MITRAL VALVE REPLACEMENT ([facility])) Gynecologic Surgery: Yes (BLADDER LIFT) Hysterectomy: Yes Tonsillectomy: Yes Valve Replacement: Yes (MITRAL VALVE) Other Surgery: Yes (VERICOSE VEIN REMOVAL IN RIGHT LEG) Social History Alcohol Use: No Tobacco Use: No Substance Use: No Allergies-Medications (Allergen,Severity, Reaction): Coded Allergies: Sulfa (Sulfonamide Antibiotics) (Unverified Allergy, Intermediate, hives, 09/03/17) Reported Meds & Prescriptions Reported Meds & Active Scripts Active Percocet (Oxycodone-Acetaminophen) 7.5-325 mg Tab 1 Tab PO Q6H PRN Metoprolol Tartrate 25 Mg Tab 25 Mg PO Q12HR 30 Days Lisinopril 10 Mg Tab 10 Mg PO DAILY 30 Days Reported Aspirin EC (Aspirin) 81 Mg Tabdr 81 Mg PO DAILY Review of Systems Except as stated in HPI: all other systems reviewed are Neg Physical Exam Narrative GENERAL: Well-nourished, well-developed patient. SKIN: Focused skin assessment warm/dry. There is a 2-1/2 cm laceration over the right supraorbital area. HEAD: Normocephalic. There is neither raccoon eyes or ward sign present. EYES: No scleral icterus. No injection or drainage. NECK: Supple, trachea midline. No JVD or lymphadenopathy. No posterior spinous process tenderness or deformity is present. CARDIOVASCULAR: Regular rate and rhythm without murmurs, gallops, or rubs. RESPIRATORY: Breath sounds equal bilaterally. No accessory muscle use. GASTROINTESTINAL: Abdomen soft, non-tender, nondistended. MUSCULOSKELETAL: No cyanosis, or edema. The patient has swelling and ecchymoses consistent with an impacted fracture proximal humerus on the right. Good capillary refill and pinprick is present on the right fingers. BACK: Nontender without obvious deformity. No CVA tenderness. Data Data Last Documented VS Vital Signs Date Time Temp Pulse Resp B/P (MAP) Pulse Ox O2 Delivery O2 Flow Rate FiO2 09/03/17 02:15 09/03/17 02:14 80 16 98 09/02/17 21:41 99.0 Orders Orders Humerus (Min 2vws) (09/03/17 00:43) Tetanus/Diphtheria Tox Adult (Tetanus/Di (09/03/17 02:00) Morphine Inj (Morphine Inj) (09/03/17 02:00) Ondansetron Inj (Zofran Inj) (09/03/17 02:00) Splint Or Brace Apply/Monitor (09/03/17 01:58) MDM Medical Decision Making Medical Screen Exam Complete: Yes Emergency Medical Condition: Yes Medical Record Reviewed: Yes Interpretation(s) X-rays of the right shoulder show an impacted fracture proximal humerus on the right. Differential Diagnosis Facial laceration, fracture proximal humerus, dislocation humerus, contusion shoulder Narrative Course The patient has a impacted fracture of the proximal humerus on the right. She is given a coaptation splint/sling and told to follow-up with orthopedics. She will likely call orthopedics in [place] because this is where she is going in the next few days. She is given Percocet 7.5 for pain. She also has a laceration on the face and the sutures come out in 5 days. She is told return to the emergency department if she has any problems. Procedures Procedure Narrative The wound edges were infiltrated with lidocaine with epinephrine. Under sterile technique, the wound was irrigated and then sutured with 8 sutures of 5- 0 nylon. The patient tolerated procedure well. Diagnosis Primary Impression: Proximal humeral fracture Additional Impression: Facial laceration Additional Instructions: As we discussed, if you have any problems please return to emergency department. The stitches come out in 5 days. Do not drink alcohol or drive on the Percocet 7.5. Med/Other Pt SpecificInfo: Prescription(s) given Scripts Oxycodone-Acetaminophen (Percocet) 7.5-325 mg Tab 1 TAB PO Q6H Y for PAIN, #28 TAB 0 Refills Prov: Roland Mcnulty MD 09/03/17 Disposition: 01 DISCHARGE HOME Condition: Stable Roland Mcnulty MD Sep 03, 2017 01:46
[2017-09-03] MEDS ORDERED: PERC7.5T13 PO (01:51)
[2017-09-03] MEDS ORDERED: TETANUS/DIPHTHERIA TOXOID ADULT 0.5 ML VIAL IM ONE (02:00)
[2017-09-03] MEDS ORDERED: MORPHINE SULFATE 8 MG/ML INJ IV PUSH ONE (02:00)
[2017-09-03] MEDS ORDERED: ONDANSETRON HCL 4 MG/2 ML VIAL IV ONE (02:00)
[2017-09-03 02:14] VITALS: BP 142/58; PULSE 80; RESP 16; O2SAT 98
== END 2017-09-03 02:26 | disposition home or self-care (01) ==
LOC: PHED 21:34
DX: S42.201A Unspecified fracture of upper end of right humerus, initial encounter for closed fracture (principal); S01.81XA Laceration without foreign body of other part of head, initial encounter; I10 Essential (primary) hypertension; M19.90 Unspecified osteoarthritis, unspecified site; W01.0XXA Fall on same level from slipping, tripping and stumbling without subsequent striking against object, initial encounter; Y92.008 Other place in unspecified non-institutional (private) residence as the place of occurrence of the external cause; Z23 Encounter for immunization; Z95.2 Presence of prosthetic heart valve; Z79.82 Long term (current) use of aspirin
CPT/HCPCS: 12011; 29125; 73060; 90471; 90714; 96374; 96375; 99284; J2270; J2405